=== PATIENT | male | born 1960 | race Caucasian/White ===

== ENCOUNTER → 2016-06-02 | Outpatient (CLI) | payer OTHER ==
[2016-06-02 09:45] LABS: Cholesterol 163 mg/dL (<200); HDL Cholesterol 59 mg/dL (40-60); Triglycerides 74 mg/dL (<150)
== END ==
LOC: LABWHC1 08:34
PROVIDERS: ATTEND Internal Medicine
DX: E78.5 Hyperlipidemia, unspecified (principal)
CPT/HCPCS: 36415; 80061

== ENCOUNTER 2021-09-02 13:41 | Day surgery (SDC) | payer OTHER ==
[2021-08-30 10:11] VITALS: BMI 22.8
[~2021-09-02 13:41] MED LIST: LIDOCAINE 1% (10MG/ML) FOR IV START INTRADERMA PRN
[2021-09-02 13:56] VITALS: TEMP 97
[2021-09-02] MEDS: LACTATED RINGERS 1,000 ML IV SCH ×2 (13:56→13:58)
[2021-09-02] MEDS ORDERED: PROPOFOL 10 MG/ML 20 ML VIAL IV ONE (14:12)
[2021-09-02] MEDS ORDERED: IV FLUID CONTINUATION 600 ML IV ONE (14:41)
--- NOTE | 2021-09-02 14:42 | P.PCN ---
Date of Procedure: 09/02/21 Procedure(s) Performed: PREOPERATIVE DIAGNOSIS: Rectal bleeding, hemorrhoids POSTOPERATIVE DIAGNOSIS: Internal and external hemorrhoids, diverticulosis PROCEDURE: Colonoscopy ANESTHESIA: MAC SURGEON: Leonidas Guillen M.D. SPECIMENS: None ENDOSCOPIC PROCEDURE: The patient was placed on the endoscopy table in the left decubitus position. The Olympus colonoscope was inserted into the anus and passed under direct visualization to the base of the cecum. The appendiceal orifice was visualized. From that point the scope was slowly withdrawn inspecting all surfaces carefully. There were no neoplastic inflammatory or polypoid lesions throughout the cecum, ascending, transverse, descending, sigmoid and rectum. There was mild left-sided diverticulosis noted. Digital rectal and perianal examination revealed right sided internal and external hemorrhoids with another column present in the right anterior location. These were free of any active inflammatory changes or thrombosis. The patient was taken to the recovery room in stable condition per anesthesia guidelines. RECOMMENDATIONS: Continue increasing water and fiber intake. Recent bleeding likely related to hemorrhoids. Repeat colonoscopy 7-10 years.
[2021-09-02 14:58] VITALS: BP 156/67; PULSE 54; RESP 18
== END 2021-09-02 15:20 | disposition home or self-care (01) ==
LOC: ORWHC2ENDO 13:41
PROVIDERS: ATTEND Surgery
DX: K64.8 Other hemorrhoids (principal); K64.4 Residual hemorrhoidal skin tags; K57.31 Diverticulosis of large intestine without perforation or abscess with bleeding; I10 Essential (primary) hypertension; E78.5 Hyperlipidemia, unspecified; Z79.899 Other long term (current) drug therapy; Z98.890 Other specified postprocedural states; Z82.49 Family history of ischemic heart disease and other diseases of the circulatory system; Z83.79 Family history of other diseases of the digestive system
CPT/HCPCS: 45378; J2704